=== PATIENT | female | born 1990 | race Caucasian/White ===

== ENCOUNTER → 2018-04-22 12:57 | Outpatient (CLI) | payer SELFPAY | DX: N83.202 Unspecified ovarian cyst, left side (principal) | CPT/HCPCS: 76830; 76856 ==

== ENCOUNTER → 2018-08-20 18:23 | Outpatient (CLI) | payer SELFPAY ==
--- NOTE | 2018-08-20 18:25 | US_ITS ---
HISTORY: FOLLOW UP LTO CYST TECHNIQUE: Transabdominal and transvaginal pelvic ultrasound was performed. COMPARISON: None FINDINGS: The uterus is anteverted and is normal in size measuring 7.4 x 3.6 x 6 cm in longitudinal, AP, and transverse dimensions, respectively. The uterine myometrium is unremarkable. The endometrium is uniform and measures 6 mm in diameter which is normal. The right ovary is visualized and shows normal size and echogenicity measuring 3.1 x 3 x 2 cm. The left ovary is enlarged secondary to a complex cyst with internal echoes measuring 3.5 x 3 x 2.9 cm. The cyst is essentially unchanged in size but is now more complex and this may reflect a hemorrhagic cyst. In total, the left ovary measures approximately 4.8 x 3.7 x 3.1 cm. No free pelvic fluid. US/Pelvic (Non ) IMPRESSION: 1. The known left ovarian cyst is essentially unchanged in size at 3.5 cm but is now more complex in appearance which may reflect a hemorrhagic cyst. 2. Ovarian cysts in this size range typically will not resolve spontaneously. 3. Normal uterus. No free fluid. at 0433 Reported and signed by: Duran Gamble MD Electronically Signed: Duran Gamble, at 4:31 EST Tel , Service support ,
--- NOTE | 2018-08-20 18:39 | US_ITS ---
HISTORY: FOLLOW UP LTO CYST TECHNIQUE: Transabdominal and transvaginal pelvic ultrasound was performed. COMPARISON: None FINDINGS: The uterus is anteverted and is normal in size measuring 7.4 x 3.6 x 6 cm in longitudinal, AP, and transverse dimensions, respectively. The uterine myometrium is unremarkable. The endometrium is uniform and measures 6 mm in diameter which is normal. The right ovary is visualized and shows normal size and echogenicity measuring 3.1 x 3 x 2 cm. The left ovary is enlarged secondary to a complex cyst with internal echoes measuring 3.5 x 3 x 2.9 cm. The cyst is essentially unchanged in size but is now more complex and this may reflect a hemorrhagic cyst. In total, the left ovary measures approximately 4.8 x 3.7 x 3.1 cm. No free pelvic fluid. US/Transvaginal Non- IMPRESSION: 1. The known left ovarian cyst is essentially unchanged in size at 3.5 cm but is now more complex in appearance which may reflect a hemorrhagic cyst. 2. Ovarian cysts in this size range typically will not resolve spontaneously. 3. Normal uterus. No free fluid. at 0433 Reported and signed by: Duran Gamble MD Electronically Signed: Duran Gamble, at 4:31 EST Tel , Service support ,
== END ==
DX: N83.202 Unspecified ovarian cyst, left side (principal)
CPT/HCPCS: 76830; 76856

== ENCOUNTER → 2018-10-27 08:01 | Outpatient (CLI) | payer SELFPAY ==
--- NOTE | 2018-10-27 08:06 | US_ITS ---
STUDY: ULTRASOUND OF THE PELVIS CLINICAL: Female, 28 years old. Left ovarian cyst TECHNIQUE: Transvaginal and transabdominal COMPARISON: None. FINDINGS: Normal uterine size measuring 8.5 x 4 x 5.3 cm in maximal craniocaudal dimension. There are no myometrial masses. Normal endometrial thickness measuring 10.7 mm and appears hyperechoic. There are no endometrial masses, and there is no fluid in the endometrial cavity. No IUD. Normal uterine cervix. Normal right ovary, measuring 3.1 x 2.2 x 2.3 cm. There are multiple follicles without a dominant cyst. Normal left ovary, measuring 3.6 x 2.4 x 5 cm. There is a 3.6 x 3 x 3.4 cm cyst. There is a 2.3 x 2 x 1 cm heterogeneous left ovarian nodule. There is mild free fluid in the pelvis. US/Transvaginal Non- IMPRESSION: Heterogeneous nodule and cyst are noted in the left ovary requiring further evaluation. Correlate with MRI if clinically indicated. Mild pelvic free fluid. Electronically Signed: Adan Polanco DO at 23:55 EST Tel [phone], Service support ,
--- NOTE | 2018-10-27 08:06 | US_ITS ---
STUDY: ULTRASOUND OF THE PELVIS CLINICAL: Female, 28 years old. Left ovarian cyst TECHNIQUE: Transvaginal and transabdominal COMPARISON: None. FINDINGS: Normal uterine size measuring 8.5 x 4 x 5.3 cm in maximal craniocaudal dimension. There are no myometrial masses. Normal endometrial thickness measuring 10.7 mm and appears hyperechoic. There are no endometrial masses, and there is no fluid in the endometrial cavity. No IUD. Normal uterine cervix. Normal right ovary, measuring 3.1 x 2.2 x 2.3 cm. There are multiple follicles without a dominant cyst. Normal left ovary, measuring 3.6 x 2.4 x 5 cm. There is a 3.6 x 3 x 3.4 cm cyst. There is a 2.3 x 2 x 1 cm heterogeneous left ovarian nodule. There is mild free fluid in the pelvis. US/Pelvic (Non ) IMPRESSION: Heterogeneous nodule and cyst are noted in the left ovary requiring further evaluation. Correlate with MRI if clinically indicated. Mild pelvic free fluid. Electronically Signed: Adan Polanco DO at 23:55 EST Tel [phone], Service support ,
== END ==
PROVIDERS: Family Provider Family Medicine; PCP Family Medicine
DX: N83.202 Unspecified ovarian cyst, left side (principal)
CPT/HCPCS: 76830; 76856

== ENCOUNTER → 2019-02-17 | Outpatient (CLI) | payer SELFPAY ==
--- NOTE | 2019-02-17 08:01 | US_ITS ---
STUDY: ULTRASOUND OF THE FEMALE PELVIS - COMPLETE REASON FOR EXAM: Female, 28 years old. Left ovarian cyst follow-up LMP: TECHNIQUE: Transabdominal and Transvaginal TECHNICAL QUALITY: Adequate. COMPARISON: October 27, 2018 ultrasound pelvis FINDINGS: The uterus is anteverted and is in a midline position. The uterus measures 8.4 x 6.2 x 4.4 cm. Normal uterine cervix. The endometrium measures 11 mm in thickness, and is hyperechoic. There is no demonstrated endometrial mass. There is no demonstrated myometrial mass. I.U.D. - The patient does not have an I.U.D. The right ovary is visualized. The right ovary measures 3.5 x 3.1 x 3.0 cm. Is a right ovarian cyst measuring 1.0 x 1.2 x 0.9 cm. There is no visualized right adnexal mass or complex lesion. There is normal arterial and normal venous vascularity. The left ovary is visualized. The left ovary measures 4.4 x 3.9 x 2.8 cm. There is a left ovarian cyst measuring 2.0 x 3.0 x 2.0 cm and a 1.1 x 1.0 x 0.9 cm cyst. There is no visualized left adnexal mass or complex lesion. There is normal arterial and normal venous vascularity. There is no fluid in the cul-de-sac. Bladder appears grossly normal. Polycystic ovary disease: No. US/Pelvic (Non ) IMPRESSION: The left ovarian cyst on today's study is slightly smaller than prior. Since is adjacent to a smaller cyst. Both have benign features with thin boucher and through-transmission. Electronically Signed: Vivienne Cruz MD at 17:38 EDT Tel , Service support ,
--- NOTE | 2019-02-17 08:01 | US_ITS ---
STUDY: ULTRASOUND OF THE FEMALE PELVIS - COMPLETE REASON FOR EXAM: Female, 28 years old. Left ovarian cyst follow-up LMP: TECHNIQUE: Transabdominal and Transvaginal TECHNICAL QUALITY: Adequate. COMPARISON: October 27, 2018 ultrasound pelvis FINDINGS: The uterus is anteverted and is in a midline position. The uterus measures 8.4 x 6.2 x 4.4 cm. Normal uterine cervix. The endometrium measures 11 mm in thickness, and is hyperechoic. There is no demonstrated endometrial mass. There is no demonstrated myometrial mass. I.U.D. - The patient does not have an I.U.D. The right ovary is visualized. The right ovary measures 3.5 x 3.1 x 3.0 cm. Is a right ovarian cyst measuring 1.0 x 1.2 x 0.9 cm. There is no visualized right adnexal mass or complex lesion. There is normal arterial and normal venous vascularity. The left ovary is visualized. The left ovary measures 4.4 x 3.9 x 2.8 cm. There is a left ovarian cyst measuring 2.0 x 3.0 x 2.0 cm and a 1.1 x 1.0 x 0.9 cm cyst. There is no visualized left adnexal mass or complex lesion. There is normal arterial and normal venous vascularity. There is no fluid in the cul-de-sac. Bladder appears grossly normal. Polycystic ovary disease: No. US/Transvaginal Non- IMPRESSION: The left ovarian cyst on today's study is slightly smaller than prior. Since is adjacent to a smaller cyst. Both have benign features with thin boucher and through-transmission. Electronically Signed: Vivienne Cruz MD at 17:38 EDT Tel , Service support ,
== END | disposition home or self-care (01) ==
PROVIDERS: Family Provider Family Medicine; PCP Family Medicine
DX: N83.202 Unspecified ovarian cyst, left side (principal)
CPT/HCPCS: 76830; 76856; 93976